=== PATIENT | male | born 1970 ===

== ENCOUNTER 2024-01-19 08:00 | Outpatient (CLI) | payer OTHER ==
[~2024-01-19] VITALS: Ht 167.6 cm; Wt 91.6 kg
[2024-01-19] MEDS ORDERED: MIRALAX17 GM PO (13:20)
== END 2024-01-28 08:01 | disposition home or self-care (01) ==
LOC: LAB 08:00 → EDUNIT# 12:45 → SURH 01-27 07:00 → EDSTATUS 01-27 12:45 → LAB 01-28 08:01
PROVIDERS: ATTEND Colon & Rectal Surgery
DX: D12.5 Benign neoplasm of sigmoid colon (principal); C18.5 Malignant neoplasm of splenic flexure; Z86.010 Personal history of colon polyps

== ENCOUNTER 2024-01-26 13:20 | Day surgery (SDC) | payer OTHER ==
[~2024-01-26 13:20] MED LIST: DIPHENHYDRAMINE HCL 50 MG/ML VIAL 1ML IV NR; DIPHENHYDRAMINE HCL 50 MG/ML VIAL 1ML IV ONE; MIDAZOLAM HCL 2 MG/2 ML VIAL IV NR; MIDAZOLAM HCL 2 MG/2 ML VIAL IV ONE; MIRALAX17 GM PO; MORPHINE SULFATE 4 MG/ML VIAL IV PRN; RINGERS SOLUTION,LACTATED 1,000 ML IV SCH; fentaNYL CITRATE 50 MCG/ML AMPUL IV NR; fentaNYL CITRATE 50 MCG/ML AMPUL IV PUSH ONE
[2024-01-26] MEDS ORDERED: FAMOTIDINE/PF 20 MG/2 ML VIAL IV SCH (21:00)
== END 2024-01-26 15:20 | disposition home or self-care (01) ==
LOC: AMB-ENDOS 13:20 → O/R 13:20 → AMB-ENDOS 15:20
PROVIDERS: ATTEND Colon & Rectal Surgery
DX: D12.5 Benign neoplasm of sigmoid colon (principal); Z88.6 Allergy status to analgesic agent

== ENCOUNTER 2024-03-03 11:45 | Inpatient (IN) | payer OTHER ==
[~2024-03-03] VITALS: Ht 167.6 cm; Wt 91.6 kg
[~2024-03-03 11:45] MED LIST changes: -DIPHENHYDRAMINE HCL 50 MG/ML VIAL 1ML IV NR; -DIPHENHYDRAMINE HCL 50 MG/ML VIAL 1ML IV ONE; -MIDAZOLAM HCL 2 MG/2 ML VIAL IV NR; -MIDAZOLAM HCL 2 MG/2 ML VIAL IV ONE; -MORPHINE SULFATE 4 MG/ML VIAL IV PRN; -RINGERS SOLUTION,LACTATED 1,000 ML IV SCH; -fentaNYL CITRATE 50 MCG/ML AMPUL IV NR; -fentaNYL CITRATE 50 MCG/ML AMPUL IV PUSH ONE
[2024-03-03] MEDS ORDERED: DULCOLAX5 MG PO (14:42)
[2024-03-08] MEDS ORDERED: LIDOCAINE HCL 1%/EPINEPHRINE 20ML VIAL IJ ONE (08:45)
[2024-03-08] MEDS ORDERED: METRONIDAZOLE/SODIUM CHLORIDE 500 MG/100 ML PIGGYBACK IV ONE (08:45)
[2024-03-08] MEDS ORDERED: BUPIVACAINE HCL/PF 0.25% 30ML VIAL InF ONE (08:45)
[2024-03-08] MEDS ORDERED: CEFTRIAXONE SODIUM 2,000 MG VIAL IV ONE (08:45)
[2024-03-08] MEDS ORDERED: RINGERS SOLUTION,LACTATED 1,000 ML IV SCH (09:45)
[2024-03-08] MEDS ORDERED: OxyCODONE HCL 5 MG TABLET (ROXICODONE) PO PRN (09:45)
[2024-03-08] MEDS ORDERED: ONDANSETRON HCL 2 MG/ML VIAL IV PRN (09:45)
[2024-03-08] MEDS ORDERED: MORPHINE SULFATE 4 MG/ML CARTRIDGE IV PRN (09:45)
[2024-03-08] MEDS ORDERED: MORPHINE SULFATE 4 MG/ML VIAL IV ONE ×2 (10:30→11:00)
[2024-03-08 12:26] LABS: HEMOGLOBIN 14.3 g/dL (13-16.00); MEAN CORPUSCULAR HEMOGLOBIN 30.2 pg (27.00-32.0); MEAN CORPUSCULAR HGB CONC 33.9 g/dl (32.0-36.0); PLATELET COUNT 163 K/uL (150-450); RED BLOOD COUNT 4.73 M/uL (4.00-6.00)
[2024-03-08] MEDS ORDERED: HYOSCYAMINE SULFATE 0.125 MG TAB.SUBL SL SCH (13:00)
[2024-03-08] MEDS ORDERED: SIMETHICONE 125 MG CAPSULE PO SCH (13:00)
[2024-03-08] MEDS ORDERED: ACETAMINOPHEN 500 MG GEL..CAP PO SCH (14:00)
[2024-03-08 16:00] VITALS: BP 117/70; O2SAT 95
[2024-03-08] MEDS ORDERED: GABAPENTIN 300 MG CAPSULE PO SCH (17:00)
[2024-03-08] MEDS ORDERED: CELECOXIB 200 MG CAPSULE PO SCH (17:00)
[2024-03-08] MEDS ORDERED: POLYETHYLENE GLYCOL 3350 17 GM BLIST.PACK PO SCH (17:00)
[2024-03-08] MEDS ORDERED: METOCLOPRAMIDE HCL 5 MG/ML VIAL IV SCH (17:00)
[2024-03-08 19:56] LABS: ABG PH 7.407 (7.35-7.45); ABG PO2 73.7 mmHg (80-100); ABG pCO2 40.1 mmHg (35-45); BASE EXCESS 0.1 mmol/l; BICARBONATE 24.7 mmol/l (23-25); SaO2 94.7 %; Tco2 25.9 mmol/l; allen test SATISFACTORY; puncture site RADIAL RIGHT
[2024-03-08 19:57] LABS: o2 24 %
[2024-03-08] MEDS ORDERED: FAMOTIDINE/PF 20 MG/2 ML VIAL IV PUSH SCH (21:00)
[2024-03-08 21:48] VITALS: O2SAT 95
[2024-03-09] VITALS (8 sets, daily range): BP systolic 105–113; BP diastolic 56–72; O2SAT 86–100
[2024-03-09 07:45] LABS: HEMATOCRIT 40.2 % (39.0-48.0); HEMOGLOBIN 13.9 g/dL (13-16.00); MEAN CELL VOLUME 87.4 fL (80.0-100.00); MEAN CORPUSCULAR HEMOGLOBIN 30.2 pg (27.00-32.0); MEAN CORPUSCULAR HGB CONC 34.5 g/dl (32.0-36.0); PLATELET COUNT 171 K/uL (150-450); RED CELL DISTRIBUTION WIDTH 13.3 % (11.5-14.5)
[2024-03-09 08:33] LABS: ALBUMIN 3.1 gm/dL (3.4-5.0); CALCIUM 8.5 mg/dL (8.5-10.1); CREATININE SERUM 1.1 mg/dL (0.70-1.30); GFR 69.5; MAGNESIUM 2.1 mg/dL (1.8-2.4); PHOSPHOROUS 3.2 mg/dL (2.5-4.9); POTASSIUM 5.09 mEq/L (3.5-5.1)
[2024-03-09] MEDS ORDERED: LACTOBACILLUS ACIDOPHILUS 1 CAP CAP PO SCH (09:00)
[2024-03-09] MEDS ORDERED: LACTULOSE 20 G/30 ML BLIST.PACK PO SCH (09:00)
[2024-03-09] MEDS ORDERED: ENOXAPARIN SODIUM 40 MG/0.4 ML SYRINGE SUBCUTANEO SCH (17:00)
[2024-03-10 01:45] VITALS: BP 116/71; O2SAT 98
[2024-03-10 06:23] VITALS: O2SAT 89
[2024-03-10 06:55] LABS: HEMATOCRIT 41.1 % (39.0-48.0); HEMOGLOBIN 14.3 g/dL (13-16.00); MEAN CELL VOLUME 87.8 fL (80.0-100.00); MEAN CORPUSCULAR HEMOGLOBIN 30.5 pg (27.00-32.0); MEAN CORPUSCULAR HGB CONC 34.7 g/dl (32.0-36.0); PLATELET COUNT 165 K/uL (150-450); RED BLOOD COUNT 4.68 M/uL (4.00-6.00); RED CELL DISTRIBUTION WIDTH 13.4 % (11.5-14.5)
[2024-03-10 07:13] LABS: CALCIUM 8.6 mg/dL (8.5-10.1); CREATININE SERUM 1.05 mg/dL (0.70-1.30); GFR 73.33; MAGNESIUM 2.1 mg/dL (1.8-2.4); PHOSPHOROUS 2.3 mg/dL (2.5-4.9); POTASSIUM 4.4 mEq/L (3.5-5.1)
[2024-03-10 08:00] VITALS: BP 111/75; O2SAT 100
[2024-03-10] MEDS ORDERED: ENOXAPARIN SODIUM 40 MG/0.4 ML SYRINGE SUBCUTANEO SCH (09:00)
[2024-03-10 09:33] VITALS: O2SAT 97
[2024-03-10] MEDS ORDERED: NAPH,MB-DB/K PH,MBDB 1 PKT PACKET PO ONE (12:00)
== END 2024-03-10 12:45 | disposition home or self-care (01) | DRG 331 ==
LOC: SURH 03-08 05:40 → O/R 03-08 05:40 → SURH 03-08 11:45
PROVIDERS: Internal Medicine Geriatric Medicine; ADMIT Colon & Rectal Surgery; ATTEND Colon & Rectal Surgery
PROC: 0DBP4ZZ Excision of Rectum, Percutaneous Endoscopic Approach (ICD-10-PCS; 2024-03-08)
PROC: 07BB4ZZ Excision of Mesenteric Lymphatic, Percutaneous Endoscopic Approach (ICD-10-PCS; 2024-03-08)
PROC: 0DJD8ZZ Inspection of Lower Intestinal Tract, Via Natural or Artificial Opening Endoscopic (ICD-10-PCS; 2024-03-08)
PROC: 4A12X4Z Monitoring of Cardiac Electrical Activity, External Approach (ICD-10-PCS; 2024-03-08)
PROC: 0DTN4ZZ Resection of Sigmoid Colon, Percutaneous Endoscopic Approach (ICD-10-PCS; principal; 2024-03-08 22:45)
DX: C18.7 Malignant neoplasm of sigmoid colon (principal); D12.5 Benign neoplasm of sigmoid colon; G47.33 Obstructive sleep apnea (adult) (pediatric); I10 Essential (primary) hypertension; R59.0 Localized enlarged lymph nodes